=== PATIENT | female | born 1980 | race African-American/Black ===

== ENCOUNTER 2018-05-02 13:55 | Emergency (ER) | payer OTHER ==
[2018-05-02] MEDS ORDERED: Lidocaine 1% 20 ML MDV ONE (15:21)
--- NOTE | 2018-05-02 15:22 | RAD ---
RIGHT FOOT 3 VIEWS: Date: 05/02/18 HISTORY: Pain. COMPARISON: None. FINDINGS: Mildly displaced fracture along the distal aspect of the proximal phalanx of the fifth digit. No inte rarticular extension. Additional fractures are not appreciated. Lisfranc alignment is maintained. IMPRESSION: Fracture along the distal aspect of the proximal phalanx of the fifth digit. POS: [facility]
--- NOTE | 2018-05-02 16:05 | RAD ---
RIGHT FOOT 3 VIEWS: Date: 05/02/18 HISTORY: Pain. COMPARISON: Radiograph same date. FINDINGS: There is minimal interval improvement in alignment of the fracture, transversely oriented, at the nec k of the proximal phalanx small toe. IMPRESSION: Minimal improved alignment of the fifth proximal phalanx neck fracture. POS: [facility]
[2018-05-02] MEDS ORDERED: HYDROcodone/Acetaminophen 5/325 mg Tablet ONE (16:53)
== END 2018-05-02 17:05 | disposition home or self-care (01) ==
LOC: MADERS 13:55
DX: S92.511A Displaced fracture of proximal phalanx of right lesser toe(s), initial encounter for closed fracture (principal); W22.8XXA Striking against or struck by other objects, initial encounter
CPT/HCPCS: 28475; J2001